=== PATIENT | female | born 1990 | race Caucasian/White ===

== ENCOUNTER 2017-02-22 22:21 | Observation (INO) | payer BC ==
--- NOTE | ~2017-02-22 | OP ---
Record Of Operation [facility] [address] [place]. [address] NAME: MAGGIE MAHER : 86 STATUS : ADM IN PAT#: [id number] AGE: 26 ADM/REG DATE : 02/22/17 MR#: [id number] REPORT SERV DATE: 02/23/17 DICTATED BY: DEEVN MOTA DATE: 02/23/17 REPORT STATUS : Draft TRANSCRIBED BY: STEVEN DATE: 02/23/17 DATE OF PROCEDURE: PREOPERATIVE DIAGNOSIS: Herniated nucleus pulposus, left C6-7 with intractable radiculopathy and neurologic deficit. POSTOPERATIVE DIAGNOSIS: Herniated nucleus pulposus, left C6-7 with intractable radiculopathy and neurologic deficit. PROCEDURES: 1. Microscopic navigation-assisted surgery. 2. Anterior cervical diskectomy and foraminotomy, C6-7. 3. Implantation of a Prestige LP cervical disk arthroplasty. ASSISTANT DRAFTER: Giovanni Ferrara. ANESTHESIA: General. ESTIMATED BLOOD LOSS: 10 mL. INDICATION FOR SURGERY: The indication for surgery and risks were explained. They are listed in the history and physical. See that for detail. DESCRIPTION OF PROCEDURE: In the preop holding, the patient was identified. Antibiotic prophylaxis given. Neurophysiology monitoring leads inserted. The patient was brought to the operative suite. General anesthetic including endotracheal intubation was administered. The patient was in a supine position with the neck in a neutral alignment. A small bolster was placed behind the shoulders. The scalp was painted with Betadine solution. Meneses three-point fixation attached to the skull using 60 pounds of torque in standard position. The Meneses was attached to the [facility]. Get Me Listed navigational registration frame attached to the [place]. Isolation drapes were placed. The neck was scrubbed with Hibiclens solution. DuraPrep was painted and sterile drapes applied. The intraoperative CT scan with O-arm obtained, CT information used to register the navigational system. With navigational assistance, I identified the C6-7 level. Parallel with the disk space on the left side at C6-7, I carried out a 2 cm skin incision. The platysma was incised in line with the skin incision. The superficial layer of the deep cervical fascia was released along the anterior border of the sternocleidomastoid. Blunt dissection was carried out to the retropharyngeal space, where the longus coli muscles were subperiosteally elevated. Retractors were placed. The microscope was sterilely draped and used throughout the remainder of the procedure. Again, with navigational assistance, I placed a [place] distractor pin in the midline distally at C7 and proximally at C6. Record Of Operation [facility] [address] [place]. [address] NAME: MAGGIE MAHER : 86 STATUS : ADM IN PAT#: [id number] AGE: 26 ADM/REG DATE : 02/22/17 MR#: [id number] REPORT SERV DATE: 02/23/17 DICTATED BY: DEVEN MOTA DATE: 02/23/17 REPORT STATUS : Draft TRANSCRIBED BY: STEVEN DATE: 02/23/17 The anterior longitudinal ligament and the anulus were incised. The diskectomy was completed from anterior to posterior, and posteriorly, there was a large rent in the posterior longitudinal ligament with obvious nucleus polyposis material sticking through the tear. Posterior longitudinal ligament was taken down. A large extruded disk herniation had two pieces including endplate cartilage found in the epidural space. The posterior-inferior lip of the body of C6 and a posterior-superior lip of the body of C7 were debrided with a 2 mm zuleima bur. The wounds were irrigated. The endplate cartilage completely removed. With intraoperative imaging, we then determined the appropriate size and both depth and height of the implant using trials. We chose a 6 x 16 mm trial. The 6 x 16 drill guide was placed. Rotational correctness was checked by intraoperative imaging. The four holes were drilled. The drill pins were placed. The drill guide removed and the chisel guide was then used to cut the rails for the implant itself. After placing the rail cutter and removing it, the implant itself was then inserted without difficulty and under intraoperative imaging. The area of the wound was irrigated. AP and lateral x-rays taken showing excellent position of the implant. The retractor was removed. No bleeding was noted. This was a very dry wound. No drain was necessary. The platysma was closed with a running 3-0 Vicryl suture. The subcutaneous tissue closed with 3-0 Vicryl suture and a subcuticular 4-0 PDS used for skin closure. Sterile dressings applied. The patient awakened, extubated, taken to recovery room in satisfactory condition having tolerated procedure well. Sponge, needle, and instrument counts were correct. No intraoperative complications noted. YARON/MODL Deven Mota D.O. / [id number] CC: Deven Mota D.O.
--- NOTE | ~2017-02-22 | PREOPHP ---
PreOp History and Physical [facility] [address] [place]. [address] NAME: MAGGIE MAHER : 86 STATUS : ADM IN PAT#: [id number] AGE: 26 ADM/REG DATE : 02/22/17 MR#: [id number] REPORT SERV DATE: 02/23/17 DICTATED BY: DEVEN ARANGO DATE: 02/23/17 REPORT STATUS : Draft TRANSCRIBED BY: STEVEN DATE: 02/23/17 CHIEF COMPLAINT: Intractable left shoulder and arm pain. HISTORY OF PRESENT ILLNESS: This is a 26-year-old right-hand dominant female, who actually works for the [employer], who had onset of some neck shoulder and arm pain several weeks ago. The pain has just been gradually worsening despite anti-inflammatories, activity modifications, home exercises, and therapy. Plain x-rays are normal. This past week, her pain became markedly worse to the point of tears and the pain by Thursday was 10/10. She had to go home from work because the pain was so intractable. An urgent MRI was obtained, which shows a very large disk herniation on the left at C6-C7, which is compatible with her left arm exam, which reveal significant loss of strength in the C7-innervated muscles. She has a loss of her triceps reflex, etc. We placed her on additional steroid and increased pain medication and as well as Neurontin over the weekend, but she called last evening saying she could not take the pain another minute. She was again in agony and having pain 10/10. She was directly admitted to the hospital for IV pain control. Due to the intractable pain and also the marked weakness which now is only 3/5 for her triceps and her wrist flexors, we believe that she should be taken to surgery rather urgently for decompression of the nerve. We have discussed the methods of decompression. The herniation is very large, in a posterior approach, would definitely require significant manipulation of the nerve root due to the size of the herniation and thus I have advised that we avoid this for risk of stretch of the nerve and instead have an anterior approach with diskectomy as well as an arthroplasty. This gives us the of removing the disk without manipulation of the nerve as well as maintaining motion and avoiding adjacent segment issues that would be associated with a traditional fusion. She is in total agreement, I have gone over the risks, benefits, alternatives, and expectations in detail, the risks including but not limited to infection, there could be injury to the midline structures including the thyroid, trachea, esophagus, the spinal cord itself with numbness, tingling, weakness, paralysis, quadriplegia, or even . Vascular injury can occur, particularly of the carotid artery, the jugular vein, or the vertebral arteries. This could lead to exsanguination or CVA. Implants could loosen or migrate, cause vascular or neurologic injury that could be impingement on the esophagus and revision surgery is always possible. Perioperative complications such as UTI, PE, pneumonia, AL, CVA, etc. were explained. Consent form will be signed. PAST MEDICAL HISTORY: None. PAST SURGICAL HISTORY: None. CURRENT MEDICATIONS: Oxycodone, gabapentin, and steroids. ALLERGIES: NONE. SOCIAL HISTORY: She is with children. Nonsmoker and does not use any alcohol. 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 FAMILY HISTORY: Noncontributory. PreOp History and Physical [address] [address] NAME: MAGGIE MAHER : 86 STATUS : ADM IN [facility]#: [id number] AGE: 26 ADM/REG DATE : 02/22/17 MR#: [id number] REPORT SERV DATE: 02/23/17 DICTATED BY: DEVEN ARANGO DATE: 02/23/17 REPORT STATUS : Draft TRANSCRIBED BY: STEVEN DATE: 02/23/17 REVIEW OF SYSTEMS: Negative. PHYSICAL EXAMINATION: GENERAL: She is alert, cooperative, well oriented. She is more comfortable, now is not so much in agony due to the pain medicine that is available. EXTREMITIES: Normal except she has a positive abducted arm sign, positive Spurling sign on the left. She has a loss of the triceps reflex completely. She has rather dense C7 radiculopathy with motor strength of only 3/5, the triceps and wrist flexors and she has some decreased sensation in the long finger. The rest of her upper extremity exam is normal for motor and sensory exam both left and right side. She has good pulses in all four extremities. No abnormal shoulder findings are found. Lower extremity musculoskeletal exam is grossly intact and normal. There are good pulses in all four extremities. LUNGS: Clear to auscultation. HEART: Rate regular and rhythmic. ABDOMEN: Soft with good bowel sounds. No peritoneal signs noted. SKIN: No abnormal skin lesions found. ASSESSMENT: There is a large herniated nucleus pulposus, left C6-C7 with acute intractable C7 radiculopathy and neurologic deficit with weakness, 3/5. RECOMMENDATIONS: As listed above. /MODL Deven Arango D.O. / [id number] CC: Deven Arango D.O.
[2017-02-23 08:10] LABS: HEMATOCRIT 44.4 % (36.0-48.0); HEMOGLOBIN 15.1 g/dL (12.0-16.0)
[2017-02-23] MEDS ORDERED: METHOC500B PO (17:17)
[2017-02-23] MEDS ORDERED: MOBIC15 MG PO (17:18)
== END 2017-02-23 18:30 | disposition home or self-care (01) ==
LOC: 3SO 22:21
PROVIDERS: Orthopaedic Surgery Orthopaedic Surgery of the Spine
PROC: 0PS Upper Bones, Reposition (ICD-10-PCS; principal; 2017-02-23 08:30)
DX: M50.123 Cervical disc disorder at C6-C7 level with radiculopathy (principal); Z98.890 Other specified postprocedural states
CPT/HCPCS: 82962; 84703; 85014; 85018; 87641; 88304; 88311; 96374; 96375; 96376; A9270-GY; C1713; G0378; J0690; J2250; J2270; J2405; J2710; J3010